=== PATIENT | female | born 1955 | race Caucasian/White ===

== ENCOUNTER 2020-02-12 08:27 | Outpatient (CLI) | payer MEDICARE, MEDICAID, SELFPAY ==
--- NOTE | 2020-02-12 08:41 | MM_ITS ---
WS: [id number] BILATERAL DIGITAL DIAGNOSTIC MAMMOGRAM MAMMOGRAPHY WITH CAD CLINICAL INFORMATION: HX OF BREAST CA HISTORY: History of right lumpectomy. COMPARISON: December 11, 2018 TECHNIQUE: Bilateral CC, MLO, and ML views. FINDINGS: Scattered fibroglandular densities bilaterally. Postoperative changes right lumpectomy with parenchym al scarring. This is stable. Right axillary surgical clips. Treatment-related changes right breast. S table well-circumscribed 1.6 cm oval isodense lesion inferior medial left breast is unchanged. This i s stable since 2008. No interval changes. No suspicious focal mass, asymmetry, calcifications, or architectural distortion. No evidence of lynne gnancy. MM/[id number] IMPRESSION: BI-RADS: 2-Benign FOLLOW UP: 1 Year Follow-up Recommend return to annual diagnostic mammography.
== END 2020-02-12 08:28 | disposition home or self-care (01) ==
LOC: RADSHAW 08:35
PROVIDERS: PCP Family Medicine; Visit Provider Internal Medicine Medical Oncology
DX: Z85.3 Personal history of malignant neoplasm of breast (principal)
CPT/HCPCS: 77066

== ENCOUNTER 2021-02-13 09:05 | Outpatient (CLI) | payer MEDICARE, MEDICAID, SELFPAY ==
--- NOTE | 2021-02-13 09:14 | MM_ITS ---
WS: [id number] Bilateral diagnostic digital mammogram, 02/13/2021 Clinical Data: HX OF BREAST CA Comparison: 02/12/2020, October 2018, 06/09/2018, 12/08/2017, 05/30/2017, 11/12/2016, 11/01/2016, 10/11/2012, 07/14/2011, 05/09/2009, 09/11/2007. Findings: There are clips in the upper outer quadrant of the right breast localizing the site of the patient's breast cancer. There is thickening of the skin of the right breast. No spiculated masses or clustered calcifications are seen. There is a smooth well bordered left medial nodule measuring 1.4 cm unchang ed. MM/[id number] Impression: 1. Posttreatment changes in the right breast which remain the same. 2. Left breast medial nodule unchanged. 3. Recommend annual mammograms. BIRADS: 2-Benign FOLLOW UP: 1 Year Follow-up The CAD gun stock checker was used.
== END 2021-02-13 09:06 | disposition home or self-care (01) ==
LOC: RADSHAW 09:10
PROVIDERS: PCP Family Medicine; Visit Provider Internal Medicine Medical Oncology
DX: Z85.3 Personal history of malignant neoplasm of breast (principal); N63.20 Unspecified lump in the left breast, unspecified quadrant
CPT/HCPCS: 77066

== ENCOUNTER 2022-07-05 09:19 | Outpatient (CLI) | payer MEDICARE, MEDICAID, SELFPAY ==
--- NOTE | 2022-07-05 09:42 | MM_ITS ---
WS: [id number] BILATERAL DIAGNOSTIC DIGITAL TOMOSYNTHESIS MAMMOGRAM WITH CAD HISTORY: history of breast cancer COMPARISON: 02/13/2021, 02/12/2020, 12/11/2018, 07/14/2011 Bilateral CC and MLO views with tomosynthesis and synthetic mammography submitted. Computer aided det ection analyzed. Breast composition: There are scattered areas of fibroglandular density. No suspicious masses, microc alcifications or architectural distortion. Well-circumscribed long-term stability 16 mm mass in the L EFT breast around 9:00. Postsurgical clips from prior lumpectomy upper outer quadrant RIGHT breast is stable. No recurrent mass. MM/[id number] IMPRESSION: BI-RADS: 2-Benign FOLLOW UP: 1 Year Follow-up
== END 2022-07-05 09:20 | disposition home or self-care (01) ==
PROVIDERS: PCP Family Medicine; Visit Provider Internal Medicine Medical Oncology
DX: Z85.3 Personal history of malignant neoplasm of breast (principal)
CPT/HCPCS: 77062

== ENCOUNTER 2022-10-28 08:27 | Oncology outpatient (recurring) (ONCR) | payer MEDICARE, MEDICAID, SELFPAY | END 2022-11-02 23:59 | disposition home or self-care (01) | LOC: ONCMED 08:27 | PROVIDERS: PCP Family Medicine; Visit Provider Internal Medicine Medical Oncology | DX: Z08 Encounter for follow-up examination after completed treatment for malignant neoplasm (principal); Z85.3 Personal history of malignant neoplasm of breast; R91.1 Solitary pulmonary nodule; J43.9 Emphysema, unspecified; Z92.21 Personal history of antineoplastic chemotherapy; Z92.3 Personal history of irradiation; F17.210 Nicotine dependence, cigarettes, uncomplicated | CPT/HCPCS: 99214; 99215 ==

== ENCOUNTER 2023-04-01 08:56 | Outpatient (CLI) | payer MEDICARE, MEDICAID, SELFPAY ==
--- NOTE | 2023-04-01 | MM_ITS ---
WS: [id number] DIAGNOSTIC BILATERAL DIGITAL BREAST TOMOSYNTHESIS MAMMOGRAPHY WITH CAD HISTORY: HX OF BREAST CX COMPARISON: 07/05/2022, 02/13/2021 and 02/12/2020 TECHNIQUE: Bilateral craniocaudad, mediolateral oblique, and mediolateral views are submitted with to mosynthesis and SM. Spot compression LEFT MLO. Computer aided detection utilized. Breast composition: There are scattered areas of fibroglandular density. Postsurgical lumpectomy moran ges are noted in the lateral posterior RIGHT breast. No recurrent mass. Long-term stability of a 16mm high density mass in the LEFT breast near 8-9 o'clock. There is an additional mass with calcificatio n measuring 6 mm in the lateral LEFT breast near 3:00. This mass has not been present on prior studie s. There are additional benign calcifications which are unchanged. MM/[id number] IMPRESSION: BI-RADS: 0-Incomplete: Need additional imaging evaluation FOLLOW UP: Need Additional Imaging LEFT breast ultrasound, limited. Ultrasound directed LEFT breast posterior near 3:00. 6 mm mass with calcifications.
--- NOTE | 2023-04-01 09:05 | MM_ITS ---
WS: [id number] DIAGNOSTIC BILATERAL DIGITAL BREAST TOMOSYNTHESIS MAMMOGRAPHY WITH CAD HISTORY: HX OF BREAST CX COMPARISON: 07/05/2022, 02/13/2021 and 02/12/2020 TECHNIQUE: Bilateral craniocaudad, mediolateral oblique, and mediolateral views are submitted with to mosynthesis and SM. Spot compression LEFT MLO. Computer aided detection utilized. Breast composition: There are scattered areas of fibroglandular density. Postsurgical lumpectomy moran ges are noted in the lateral posterior RIGHT breast. No recurrent mass. Long-term stability of a 16mm high density mass in the LEFT breast near 8-9 o'clock. There is an additional mass with calcificatio n measuring 6 mm in the lateral LEFT breast near 3:00. This mass has not been present on prior studie s. There are additional benign calcifications which are unchanged.
== END 2023-04-01 08:57 | disposition home or self-care (01) ==
PROVIDERS: PCP Family Medicine; Visit Provider Family Medicine
DX: Z85.3 Personal history of malignant neoplasm of breast (principal); N63.25 Unspecified lump in the left breast, overlapping quadrants
CPT/HCPCS: 77062; 77066; G0279

== ENCOUNTER 2023-05-03 13:14 | Outpatient (CLI) | payer MEDICARE, MEDICAID, SELFPAY ==
--- NOTE | 2023-05-03 | US_ITS ---
ADDENDUM WS: [id number] ADDITIONAL VIEWS LEFT MAMMOGRAM with tomosynthesis. LEFT BREAST ULTRASOUND Results called to Sandra at Dr. Churchill office 05/03/23 @ 1514 Addendum Dictated By: Dunia Cuenca DO Addendum Signed By: Dnuia Cuenca DO Signed Date/Time: 05/04/23 1231 Addendum Cosigned By: WS: [id number] ADDITIONAL VIEWS LEFT MAMMOGRAM with tomosynthesis. LEFT BREAST ULTRASOUND HISTORY: CALCS COMPARISON: 04/01/2023 and 07/05/2022 LEFT MAMMOGRAM: Spot compression views and true ML with tomosynthesis and sympathetic mammography. Focal asymmetry with calcifications in the posterior lateral LEFT breast near 3- 4 o'clock is reidentified. The calcifications are pleomorphic. Soft tissue mass with calcifications measures approximately 8 mm. The asymmetric soft tissue does not completely resolve. LEFT BREAST ULTRASOUND 2-D and color Doppler imaging submitted. No corresponding finding on the ultrasound. The large solid mass which is stable was identified. This mass has been present on multiple prior studies. IMPRESSION: MM/[id number] BI-RADS: 4-Suspicious Finding-Biopsy Should Be Considered FOLLOW UP: Stereotactic Biopsy Recommended Soft tissue mass with pleomorphic calcifications LEFT breast near 3-4 o'clock. Very posterior position of this mass may be difficult to perform a stereotactic biopsy on. May need to be surgically excised if not successful stereotactic biopsy. Notified Aleksandr Churchill MD at 05/03/2023 3:12 PM. Dictated By: Dunia Cuenca DO Signed By: Dunia Cuenca DO Signed Date/Time: 05/03/23 1512 DD/ [id number]
--- NOTE | 2023-05-03 14:38 | MM_ITS ---
WS: [id number] ADDITIONAL VIEWS LEFT MAMMOGRAM with tomosynthesis. LEFT BREAST ULTRASOUND HISTORY: CALCS COMPARISON: 04/01/2023 and 07/05/2022 LEFT MAMMOGRAM: Spot compression views and true ML with tomosynthesis and sympathetic mammography. Focal asymmetry with calcifications in the posterior lateral LEFT breast near 3-4 o'clock is reidenti fied. The calcifications are pleomorphic. Soft tissue mass with calcifications measures approximately 8 mm. The asymmetric soft tissue does not completely resolve. LEFT BREAST ULTRASOUND 2-D and color Doppler imaging submitted. No corresponding finding on the ultrasound. The large solid mass which is stable was identified. This mass has been present on multiple prior studies. IMPRESSION: MM/[id number] BI-RADS: 4-Suspicious Finding-Biopsy Should Be Considered FOLLOW UP: Stereotactic Biopsy Recommended Soft tissue mass with pleomorphic calcifications LEFT breast near 3-4 o'clock. Very posterior position of this mass may be difficult to perform a stereotactic biopsy on. May need to be surgically excised if not successful stereotactic bi opsy. Notified Aleksandr Churchill MD at 05/03/2023 3:12 PM.
== END 2023-05-03 13:15 | disposition home or self-care (01) ==
PROVIDERS: PCP Family Medicine; Visit Provider Family Medicine
DX: R92.8 Other abnormal and inconclusive findings on diagnostic imaging of breast (principal); R92.1 Mammographic calcification found on diagnostic imaging of breast; N63.23 Unspecified lump in the left breast, lower outer quadrant
CPT/HCPCS: 76642; 77065